=== PATIENT | female | born 1945 | race Caucasian/White ===

== ENCOUNTER 2020-01-29 15:59 | Emergency (ER) | payer MEDICARE, OTHER ==
[~2020-01-29] VITALS: Ht 165.1 cm; Wt 56.8 kg
[2020-01-29 16:39] VITALS: Ht 165.1 cm; Wt 56.8 kg
[2020-01-29] MEDS ORDERED: LOPRESSOR25 MG PO (16:40)
[2020-01-29] MEDS ORDERED: MAG 6464 MG PO (16:41)
[2020-01-29] MEDS ORDERED: PRAVACHOL20 MG PO (16:41)
[2020-01-29] MEDS ORDERED: ZOLOFT100 MG PO (16:41)
[2020-01-29] MEDS ORDERED: VITAMIN D5000 UNI1 PO (16:42)
[2020-01-29 17:30] LABS: BASOPHILS 0.1 % (0-2); EOSINOPHILS 0 % (0-7); HEMATOCRIT 44.3 % (36.0-48.0); IMMATURE GRANULOCYTES 0.4 % (0-5); LYMPHOCYTES 7.8 % (15-50); MCH 30.9 pg (26.0-34.0); MCHC 33.9 g/dL (31.0-37.0); MCV 91.2 fL (80.0-100.0); MEAN PLATELET VOLUME 8.5 fL (7.4-10.4); NEUTROPHILS 86.7 % (40-80); PLATELET COUNT 467 10x3/uL (130-400); RBC 4.86 10x6/uL (4.00-5.40); RDW 13.5 % (11.5-14.5); WBC 15.9 10x3/uL (4.8-10.8)
[2020-01-29 17:43] LABS: CALC OSMOLALITY 268 mosm/kg (275-300); CALCIUM 10.6 mg/dL (8.5-10.1); CHLORIDE - SERUM 91 mmol/L (98-107); CREATININE - SERUM 1.7 mg/dL (0.6-1.3); GLUCOSE 124 mg/dL (74-106); SODIUM 133 mmol/L (136-145); UREA NITROGEN 18 mg/dL (7-18); eGFR NON AFRICAN AMERICAN 31 mL/min (90-120)
[2020-01-29 17:56] LABS: ALKALINE PHOSPHATASE 126 U/L (30-120); ALT (SGPT) 23 U/L (10-68); AMYLASE - SERUM 72 U/L (25-115); APTT 28.1 SECONDS (22.8-39.4); BILIRUBIN - TOTAL 0.46 mg/dL (0.2-1.3); LIPASE 151 U/L (73-393); PROTEIN - SERUM 8.4 g/dL (6.4-8.2)
[2020-01-29 18:03] LABS: TROPONIN-I < 0.017 ng/mL (0.000-0.060)
[2020-01-29 18:24] LABS: INR 0.99 (0.85-1.17)
[2020-01-29 18:36] LABS: BILIRUBIN NEGATIVE (NEGATIVE); GLUCOSE 1000 mg/dL (NEGATIVE); KETONE MODERATE mg/dL (NEGATIVE); NITRITE NEGATIVE (NEGATIVE); SPECIFIC GRAVITY 1.015 (1.005-1.020); UROBILINOGEN NORMAL (NORMAL)
[2020-01-29] MEDS ORDERED: CARAFATE1 G PO (18:44)
[2020-01-29 20:00] VITALS: BP 149/91
== END 2020-01-29 20:00 | disposition home or self-care (01) ==
LOC: D.ER 15:59
PROVIDERS: Family Medicine
DX: K29.70 Gastritis, unspecified, without bleeding (principal); E86.0 Dehydration; E87.6 Hypokalemia; E87.1 Hypo-osmolality and hyponatremia; K21.9 Gastro-esophageal reflux disease without esophagitis; I10 Essential (primary) hypertension; R10.9 Unspecified abdominal pain; R11.2 Nausea with vomiting, unspecified; R19.7 Diarrhea, unspecified

== ENCOUNTER 2020-02-07 18:20 | Inpatient (IN) | payer MEDICARE, OTHER ==
[~2020-02-07] VITALS: Ht 165.1 cm; Wt 58.8 kg
[~2020-02-07 18:20] MED LIST: CARAFATE1 G PO; LOPRESSOR25 MG PO; MAG 6464 MG PO; PRAVACHOL20 MG PO; VITAMIN D5000 UNI1 PO; ZOLOFT100 MG PO
[2020-02-07 19:37] LABS: BASOPHILS 0.1 % (0-2); EOSINOPHILS 0.1 % (0-7); HEMATOCRIT 41.2 % (36.0-48.0); IMMATURE GRANULOCYTES 0.6 % (0-5); LYMPHOCYTES 7.4 % (15-50); MCH 30.7 pg (26.0-34.0); MCV 90.4 fL (80.0-100.0); MEAN PLATELET VOLUME 8.5 fL (7.4-10.4); MONOCYTES 8.3 % (2-11); NEUTROPHILS 83.5 % (40-80); PLATELET COUNT 432 10x3/uL (130-400); RBC 4.56 10x6/uL (4.00-5.40); RDW 13.3 % (11.5-14.5); WBC 15.6 10x3/uL (4.8-10.8)
[2020-02-07 19:46] LABS: ALBUMIN 3.2 g/dL (3.4-5.0); BILIRUBIN - TOTAL 0.41 mg/dL (0.2-1.3); CARBON DIOXIDE 28.7 mmol/L (21.0-32.0); CREATININE - SERUM 2.2 mg/dL (0.6-1.3); PROTEIN - SERUM 7.2 g/dL (6.4-8.2)
[2020-02-07 19:48] LABS: PROTIME 13.6 SECONDS (11.6-15.0)
[2020-02-07 19:49] LABS: INR 1.05 (0.85-1.17)
[2020-02-07 19:51] LABS: POTASSIUM - SERUM 2.7 mmol/L (3.5-5.1)
--- NOTE | 2020-02-08 00:15 | NUR ---
PATIENT TO THE FLOOR, STATES NO N/V AT THIS TIME. STATES SHE FEELS PRETTY GOOD RIGHT NOW. CALL LIGHT WITHIN REACH AND BED IN LOWEST POSITION. NO DISTRESS NOTED.
[2020-02-08 04:00] VITALS: BP 155/92
[2020-02-08 09:26] VITALS: BP 138/87
[2020-02-08 13:33] VITALS: BMI 21.3
[2020-02-08 15:29] LABS: ANION GAP 7.6 mmol/L (8-16); CALCIUM 9.1 mg/dL (8.5-10.1); CARBON DIOXIDE 28.7 mmol/L (21.0-32.0); MAGNESIUM - SERUM 1.8 mg/dL (1.8-2.4)
[2020-02-08 15:34] LABS: CREATININE - SERUM 1.4 mg/dL (0.6-1.3); POTASSIUM - SERUM 3.3 mmol/L (3.5-5.1)
[2020-02-08 15:52] VITALS: BP 114/72
[2020-02-08 15:59] LABS: BASOPHILS 0.2 % (0-2); EOSINOPHILS 1.3 % (0-7); IMMATURE GRANULOCYTES 0.2 % (0-5); LYMPHOCYTES 16.4 % (15-50); MCH 30.2 pg (26.0-34.0); MCHC 33.3 g/dL (31.0-37.0); MCV 90.7 fL (80.0-100.0); MEAN PLATELET VOLUME 8.6 fL (7.4-10.4); MONOCYTES 10.9 % (2-11); PLATELET COUNT 363 10x3/uL (130-400); RDW 13.1 % (11.5-14.5)
[2020-02-08 16:00] LABS: HEMATOCRIT 32.1 % (36.0-48.0); HEMOGLOBIN 10.7 g/dL (12-16); RBC 3.54 10x6/uL (4.00-5.40)
[2020-02-08 16:21] VITALS: Ht 165.1 cm; Wt 58.8 kg
--- NOTE | 2020-02-08 17:06 | NUR ---
TELEMETRY SR. VISITOR AT . CALL LIGHT IN REACH.
--- NOTE | 2020-02-08 18:43 | NUR ---
I have reviewed this patient and I concur with the Shift Assessment completed by the Licensed Practical Nurse today this shift.
[2020-02-08 19:04] LABS: BILIRUBIN NEGATIVE (NEGATIVE); GLUCOSE NEGATIVE (NEGATIVE); KETONE NEGATIVE (NEGATIVE); NITRITE NEGATIVE (NEGATIVE); UROBILINOGEN NORMAL (NORMAL)
[2020-02-08 19:15] LABS: POTASSIUM - URINE 10.8 MMOL/L (12.0-62.0)
--- NOTE | 2020-02-08 19:54 | NUR ---
PT LYING IN BED AWAKE ALERT AND ORIENTED x4. NO SIGNS OR SYMPTOMS OF DISTRESS NOTED. RESPIRATIONS EVEN AND UNLABORED. PT HAS NO COMPLAINTS. DENIES PT AT THIS TIME. PT STATES 0 PAIN LEVEL. CALL LIGHT AND OTHER PERSONAL ITEMS WITH IN REACH. BED IS IN LOWEST POSITION. AND SIDERAILS x2. WILL CONTINUE TO MONITOR
[2020-02-08 20:00] VITALS: BP 120/67
[2020-02-08 21:06] LABS: CALCIUM 9.1 mg/dL (8.5-10.1); CARBON DIOXIDE 29.1 mmol/L (21.0-32.0); CREATININE - SERUM 1.2 mg/dL (0.6-1.3); POTASSIUM - SERUM 3.1 mmol/L (3.5-5.1)
[2020-02-09] VITALS: BP 132/90
--- NOTE | 2020-02-09 03:20 | NUR ---
PT LYING IN BED RESTING WITH EYES CLOSED. NO SIGNS OF DISTRESS NOTED. EASILY AWAKEN WITH VOICE STIMULATION. ICE WATER PROVIDED PER. PT REQUEST. AU CARE DONE. PT HAS NO COMPLAINTS AT THIS TIME. CALL LIGHT AND OTHER PERSONAL ITEMS WITH IN REACH. WILL CONTINUE TO MONITOR
--- NOTE | 2020-02-09 03:48 | NUR ---
PT RESTING IN BED QUIETLY WITH EYES CLOSED. EASILY AWAKEN WITH VOICE STIMULATION. NO SIGNS OF DISTRESS NOTED AT THIS TIME. PT HAS NO COMPLAINTS. PT ENCOUARGED TO CALL FOR HELP WHEN NEEDED. PT HAS BEEN NPO SINCE MIDNIGHT. PT IS AWARE. CALL LIGHT AND OTHER PERSONAL ITEMS WITH INREACH. WILL CONTINUE TO MONITOR
[2020-02-09 04:00] VITALS: BP 124/88
[2020-02-09 06:37] LABS: BASOPHILS 0.3 % (0-2); EOSINOPHILS 2.6 % (0-7); HEMATOCRIT 36.6 % (36.0-48.0); HEMOGLOBIN 11.8 g/dL (12-16); IMMATURE GRANULOCYTES 0.3 % (0-5); LYMPHOCYTES 29.8 % (15-50); MCH 29.6 pg (26.0-34.0); MCHC 32.2 g/dL (31.0-37.0); MEAN PLATELET VOLUME 8.3 fL (7.4-10.4); MONOCYTES 10.5 % (2-11); NEUTROPHILS 56.5 % (40-80); PLATELET COUNT 404 10x3/uL (130-400); RBC 3.98 10x6/uL (4.00-5.40); RDW 13.1 % (11.5-14.5)
[2020-02-09 06:40] LABS: WBC 6.6 10x3/uL (4.8-10.8)
[2020-02-09 06:51] LABS: ANION GAP 7.3 mmol/L (8-16); CALCIUM 9.7 mg/dL (8.5-10.1); CARBON DIOXIDE 30.1 mmol/L (21.0-32.0); CREATININE - SERUM 1.2 mg/dL (0.6-1.3); MAGNESIUM - SERUM 1.9 mg/dL (1.8-2.4); POTASSIUM - SERUM 3.4 mmol/L (3.5-5.1)
--- NOTE | 2020-02-09 07:30 | NUR ---
PT RECEIVED AWAKE AND ALERT. NPO FOR EGD. MED GIVEN WITH SIP. FAMILY IN ROOM.
[2020-02-09 10:01] VITALS: BP 144/89
[2020-02-09 15:09] VITALS: BP 146/98
--- NOTE | 2020-02-09 15:17 | NUR ---
PT BACK TO ROOM FROM RECOVERY POST EGD. AWAKE AND ALERT ASKING FOR WATER. ABLE TO SWALLOW WITHOUT DIFFICULTY OR COUGH. DR BAEZ IN ROOM NOW.
[2020-02-09 20:50] VITALS: BP 143/85
[2020-02-10 00:49] VITALS: BP 142/93
--- NOTE | 2020-02-10 01:57 | NUR ---
PT RESTING IN BED QUIETLY WITH EYES CLOSED. PT EASILY AWAKEN WITH VOICE STIMULATION. PT ALERT AND ORIENTED X4. PT HAS NO COMPLAINTS AT THIS TIME.CALL LIGHT NAD OTHER PERSONAL ITEMS WITH IN REACH. BED IS IN ITS LOWEST POSITION. SIDERAILS x2. PT ENCOURAGED TO CALL FOR HELP WHEN GETTING IN AND OUT OF BED AND NEEDED. WILL CONTINUE TO MONITOR
[2020-02-10 05:18] VITALS: BP 160/97
--- NOTE | 2020-02-10 06:31 | NUR ---
I have reviewed this patient and I concur with the Shift Assessment completed by the Licensed Practical Nurse today this shift.
[2020-02-10 08:12] LABS: BASOPHILS 0.3 % (0-2); HEMATOCRIT 34.8 % (36.0-48.0); HEMOGLOBIN 11.3 g/dL (12-16); IMMATURE GRANULOCYTES 0.3 % (0-5); LYMPHOCYTES 23.4 % (15-50); MCH 30.3 pg (26.0-34.0); MCHC 32.5 g/dL (31.0-37.0); MCV 93.3 fL (80.0-100.0); MEAN PLATELET VOLUME 8.7 fL (7.4-10.4); MONOCYTES 8.4 % (2-11); NEUTROPHILS 64.6 % (40-80); PLATELET COUNT 412 10x3/uL (130-400); RBC 3.73 10x6/uL (4.00-5.40); RDW 13.3 % (11.5-14.5); WBC 6.3 10x3/uL (4.8-10.8)
[2020-02-10 08:15] VITALS: BP 152/94
--- NOTE | 2020-02-10 08:15 | NUR ---
PT RECEIVED AWAKE AND ALERT. STATES SLEPT REALLY GOOD. BP UP SOME, 152/94. BP MED GIVEN, WILL CHECK AGAIN SHORTLY.
[2020-02-10 08:47] LABS: ANION GAP 8.5 mmol/L (8-16); CALCIUM 9.5 mg/dL (8.5-10.1); CARBON DIOXIDE 26.3 mmol/L (21.0-32.0); CREATININE - SERUM 1.1 mg/dL (0.6-1.3); MAGNESIUM - SERUM 1.9 mg/dL (1.8-2.4); POTASSIUM - SERUM 3.8 mmol/L (3.5-5.1)
[2020-02-10 11:23] VITALS: BP 163/92
[2020-02-10 15:44] VITALS: BP 170/100
[2020-02-10] MEDS ORDERED: PROTONIX40 MG PO (15:56)
[2020-02-10] MEDS ORDERED: CARAFATE1 G PO (15:56)
--- NOTE | 2020-02-10 17:22 | NUR ---
PT'S DC INSTRUCTIONS REVIEWED. IV OUT. TELEMETRY REMOVED. WHEELCHAIR TO ER FOR DISCHARGE.
--- NOTE | 2020-02-11 22:03 | MORECARE ---
CASE MANAGEMENT DISCHARGE SUMMARY PATIENT: NAHEED CHRISTIANSON UNIT: [id number] ADM DATE: 02/08/20 AGE: 74 : 45 SEX: F ROOM/BED: D.2071 AUTHOR: SUSAN,DOC PHYSICIAN: REFERRING PHYSICIAN: CHONG MESA MD DATE OF SERVICE: 02/11/20 Discharge Plan Patient Name: NAHEED CHRISTIANSON Facility: [facility]:[place] : 1945 Planned Disposition: Home Anticipated Discharge Date: Discharge Date: 02/10/2020 Expected LOS: Initial Reviewer: [email or web address] Initial Review Date: 02/07/2020 Generated: 02/11/20 11:02 pm Comments DCP- Discharge Planning Updated by [email or web address]: Pam Wilson on 02/11/20 8:[address] LATE ENTRY 02/10/20 Patient Name: NAHEED CHRISTIANSON Admission Status: Elective Accout number: [id number] Admission Date: 02-08-2020 : 1945 Admission Diagnosis:ACUTE KIDNEY FAILURE, UNSPECIFIED Attending: ANGELIA Current LOS: 2 Anticipated DC Date: Planned Disposition: Home Primary Insurance: MEDICARE A & B Discharge Planning Comments: CM met with patient to complete initial dc planning assessment. CM educated patient on the CM role and verbal consent given by patient to complete assessment. Patient lives at home alone. Patient is independent. At discharge patient plans to return home and feels this is a safe discharge. CM discussed availability of home health, rehab services, and medical equipment. Patient will have family to transport home. Patient denied known discharge needs at this time. D/C IMM signed 02/10/20 @ 1610 CM will continue to follow and will assist as needed with dc plans/needs. Candy Packer: Pam Wilson DCPIA - Discharge Planning Initial Assessment Updated by [id number]: Pam Wilson on 02/11/20 9:58 pm * Is the patient Alert and Oriented? Yes * How many steps to enter\exit or inside your home? * PCP NED BURROUGHS * Pharmacy [facility] * Preadmission Environment Home Alone * ADLs Independent * Equipment None * List name and contact numbers for known caregivers / representatives who currently or will assist patient after discharge: TRISTAN SORENSEN - [phone] * Verbal permission to speak to the caregivers and representatives has been obtained from the patient. No * Community resources currently utilized None * Additional services required to return to the preadmission environment? No * Can the patient safely return to the preadmission environment? Yes * Has this patient been hospitalized within the prior 30 days at any hospital? No Coverage Notice Reviewer: [email or web address] Barbara Marr Notice Issued Date-Time: 02/08/2020 13:10 Notice Type: Medicare Outpatient Observation Notice Notice Delivered To: Patient Relationship to Patient: Store Administrator Name: Delivery Method: HAND - Hand Delivered Ella Days: Prior Verbal Notification: Recipient Understood Notice: Yes Recipient Signature: Yes Med Rec Note Co-signed by Attending: Coverage Notice Comment: PONCE SERVED, EXPLAINED, AND SIGNED BY PATIENT. THE ORIGINAL WAS PROVIDED TO THE PATIENT AND COPY PLACED ON CHART. Reviewer: [email or web address] Barbara Wilson Notice Issued Date-Time: 02/10/2020 16:10 Notice Type: IM Discharge Notice Notice Delivered To: Patient Relationship to Patient: Self Store Administrator Name: Delivery Method: HAND - Hand Delivered Ella Days: Prior Verbal Notification: Recipient Understood Notice: Yes Recipient Signature: Yes Med Rec Note Co-signed by Attending: Coverage Notice Comment: Patient Name: NAHEED CHRISTIANSON Page [phone] at 2203 All edits/amendments must be made on the electronic document DICTATION DATE: 02/11/202202 FINANCIAL SYSTEMS MANAGER: NELLY 02/11/202202 RPT#: [id number] DC DATE:02/10/20 STATUS: DIS IN [facility] [address] [place] [address] END OF REPORT
== END 2020-02-10 17:23 | disposition home or self-care (01) | DRG 683 ==
LOC: D.ER 18:20 → D.M2 20:41 → OBSVTIME 22:05 → D.M2 02-08 17:14
PROVIDERS: Emergency Medicine; Family Medicine; Internal Medicine; Internal Medicine Gastroenterology; ADMIT Family Medicine; ATTEND Family Medicine
PROC: 0DB68ZX Excision of Stomach, Via Natural or Artificial Opening Endoscopic, Diagnostic (ICD-10-PCS; principal; 2020-02-09 14:00)
DX: N17.9 Acute kidney failure, unspecified (principal); E87.1 Hypo-osmolality and hyponatremia; K56.7 Ileus, unspecified; E87.6 Hypokalemia; R16.0 Hepatomegaly, not elsewhere classified; K21.9 Gastro-esophageal reflux disease without esophagitis; R91.8 Other nonspecific abnormal finding of lung field; K52.9 Noninfective gastroenteritis and colitis, unspecified; E86.0 Dehydration; K29.80 Duodenitis without bleeding; Q40.2 Other specified congenital malformations of stomach

== ENCOUNTER 2020-02-23 17:39 | Inpatient (IN) | payer MEDICARE, OTHER ==
[~2020-02-23] VITALS: Ht 167.6 cm; Wt 59.6 kg
--- NOTE | 2020-02-23 10:10 | NUR ---
DURING ADMISSION HISTORY, PATIENT STATED SHE WANTED TO BE DNR. PAGED OLGA KAUR AT 220. OLGA IMMEDIATELY CALLED BACK AND GAVE OKAY WITH A WITNESS. AT 2209, DR. WILKINS WALKED INTO PATIENT ROOM AND TALK WITH PATIENT ABOUT WANTING TO BE DNR. AFTER TALKING TO DR. WILKINS, PATIENT IS TO REMAIN FULL CODE.
[~2020-02-23 17:39] MED LIST changes: +PROTONIX40 MG PO
[2020-02-23 18:26] LABS: BASOPHILS 0.1 % (0-2); EOSINOPHILS 0.1 % (0-7); HEMATOCRIT 31.4 % (36.0-48.0); HEMOGLOBIN 10.5 g/dL (12-16); IMMATURE GRANULOCYTES 0.3 % (0-5); LYMPHOCYTES 5.6 % (15-50); MCH 29.6 pg (26.0-34.0); MCHC 33.4 g/dL (31.0-37.0); MCV 88.5 fL (80.0-100.0); MEAN PLATELET VOLUME 7.8 fL (7.4-10.4); MONOCYTES 5.8 % (2-11); NEUTROPHILS 88.1 % (40-80); RBC 3.55 10x6/uL (4.00-5.40); RDW 12.9 % (11.5-14.5); WBC 15.1 10x3/uL (4.8-10.8)
[2020-02-23 18:27] LABS: PLATELET COUNT 538 10x3/uL (130-400)
[2020-02-23 18:30] VITALS: BP 126/73
[2020-02-23 18:38] LABS: INR 1.07 (0.85-1.17); PROTIME 13.9 SECONDS (11.6-15.0)
[2020-02-23 18:44] LABS: ALBUMIN 2.9 g/dL (3.4-5.0); ANION GAP 5.4 mmol/L (8-16); BILIRUBIN - TOTAL 0.4 mg/dL (0.2-1.3); CALCIUM 9.5 mg/dL (8.5-10.1); CARBON DIOXIDE 33.3 mmol/L (21.0-32.0); CREATININE - SERUM 1.2 mg/dL (0.6-1.3); PROTEIN - SERUM 6.3 g/dL (6.4-8.2)
[2020-02-23 18:45] LABS: APTT 32.4 SECONDS (22.8-39.4)
[2020-02-23 18:53] LABS: POTASSIUM - SERUM 2.7 mmol/L (3.5-5.1)
--- NOTE | 2020-02-23 19:10 | NUR ---
BS REPORT TO TRAVIS FOSS
--- NOTE | 2020-02-23 21:18 | NUR ---
PATIENT ARRIVED VIA STRECTHER FROM ER. A/O X 4. BREATHING ROOM AIR. LEFT AND RIGHT PIV TO FOREARMS. PROTONIX 10ML/HR VIA LEFT FOREARM, ZOFRAN IV TO RIGHT FOREARM. DR. WILKINS IN ROOM WITH PATIENT ON ARRIVAL.
--- NOTE | 2020-02-23 21:35 | NUR ---
DR. BOJORQUEZ IN TO SEE PATIENT.
[2020-02-23 21:44] VITALS: BP 123/78; BMI 19.7
[2020-02-23 22:00] VITALS: BP 149/91
--- NOTE | 2020-02-23 22:10 | NUR ---
DURING ADMISSION HISTORY, PATIENT STATED SHE WANTED TO BE DNR. PAGED OLGA KAUR AT 2204. OLGA IMMEDIATELY CALLED BACK AND GAVE OKAY WITH TORITO MERCADO RN WITNESS. AT 2210, DR. WILKINS WALKED INTO PATIENT ROOM AND TALK WITH PATIENT ABOUT WANTING TO BE DNR. AFTER TALKING TO DR. WILKINS, PATIENT IS TO REMAIN FULL CODE.
[2020-02-23 23:00] VITALS: BP 115/78
--- NOTE | 2020-02-23 23:14 | NUR ---
PATIENT'S NEIGHBOR, MS. ELLER CALLED, PASSCODE WITH GIVEN BY HER. UPDATE GIVEN.
[2020-02-24] VITALS (24 sets, daily range): BP systolic 105–160; BP diastolic 64–99; Ht 167.6 cm; Wt 59.6 kg
--- NOTE | 2020-02-24 01:00 | NUR ---
EYES CLOSED, EASILY WAKES. VSS. DENIES ANY NEEDS
[2020-02-24 04:05] LABS: BASOPHILS 0.3 % (0-2); EOSINOPHILS 0.5 % (0-7); HEMATOCRIT 26.6 % (36.0-48.0); HEMOGLOBIN 8.8 g/dL (12-16); IMMATURE GRANULOCYTES 0.2 % (0-5); LYMPHOCYTES 12.6 % (15-50); MCH 29.5 pg (26.0-34.0); MCHC 33.1 g/dL (31.0-37.0); MCV 89.3 fL (80.0-100.0); MEAN PLATELET VOLUME 7.7 fL (7.4-10.4); MONOCYTES 8.1 % (2-11); NEUTROPHILS 78.3 % (40-80); RBC 2.98 10x6/uL (4.00-5.40)
[2020-02-24 04:07] LABS: PLATELET COUNT 423 10x3/uL (130-400)
[2020-02-24 04:17] LABS: ALBUMIN 2.4 g/dL (3.4-5.0); ANION GAP 4.9 mmol/L (8-16); BILIRUBIN - TOTAL 0.28 mg/dL (0.2-1.3); CALCIUM 8.8 mg/dL (8.5-10.1); CREATININE - SERUM 1.2 mg/dL (0.6-1.3); MAGNESIUM - SERUM 1.9 mg/dL (1.8-2.4); PROTEIN - SERUM 5.1 g/dL (6.4-8.2)
[2020-02-24 04:18] LABS: POTASSIUM - SERUM 2.9 mmol/L (3.5-5.1)
--- NOTE | 2020-02-24 07:20 | NUR ---
[id number] COMPLETED. NO CHANGES 0500- CONSENTS SIGNED. 0530- 1 UNIT OF PRBC STARTED. 0600-CHG BATH GIVEN. 0615-PIV TO LEFT FOREARM INFILTRATED. RESTARTED PIV 20G TO LEFT FOREARM X 2 ATTEMPTS.
[2020-02-24 08:03] LABS: BILIRUBIN NEGATIVE (NEGATIVE); GLUCOSE NEGATIVE (NEGATIVE); KETONE NEGATIVE (NEGATIVE); NITRITE NEGATIVE (NEGATIVE); SPECIFIC GRAVITY 1.005 (1.005-1.020); UROBILINOGEN NORMAL (NORMAL)
--- NOTE | 2020-02-24 08:15 | NUR ---
1UPRBC COMPLETE. VSS. PT NPO FOR OR TODAY. PT DENIES PAIN. NO N&V.
--- NOTE | 2020-02-24 10:45 | NUR ---
ANSWERED PTS CALL LIGHT REQUESTING TO TRY USE VEDPAN FOR URINE
--- NOTE | 2020-02-24 12:48 | NUR ---
1230-PT TO OR. CONCENTS ON CHART. PREOP MEDS GIVEN.PTS FRIEND DIRECTED TO [place] BY OR STAFF.
--- NOTE | 2020-02-24 15:07 | NUR ---
REC'D PT FROM RR. VSS, PT C/O INCISIONAL PAIN TO ABD. MS GIVEN ORDERED.
[2020-02-24 15:56] LABS: HEMATOCRIT 30.2 % (36.0-48.0); HEMOGLOBIN 9.9 g/dL (12-16)
[2020-02-24 16:14] LABS: % SATURATION 9 % (15-55); IRON 19 ug/dl (35-150); TOTAL IRON BIND CAPACITY 200 ug/dl (260-445); UNSAT IRON BIND CAPACITY 181 ug/dl (150-375)
--- NOTE | 2020-02-24 19:00 | NUR ---
REPORT RECEIVED DAY NURSE MEDICATED WITH MORPHINE FOR PAIN AT THIS TIME. PT ALERT AND ORIENTED X 4. FOLLOWS COMMANDS. MID LINE ABD INCISION NOTED INTACT OLD DRAINAGE MARKED FOR MEASURE NO ACTIVE BLEEDING NOTED AT THIS TIME WILL CONTINUE TO MONITOR. PT ON 3.5LPM O2 PER NC WITH O2 SAT 96%. RESP EVEN NONLABORED BUT SHALLOW ENCOURAGED PT DEEP BREATHS MAY BE PAINFUL BUT WILL HELP IN LONG RUN AND NECESSARY FOR HEALING WITHOUT COMPLICATIONS. CM READING SR-ST WITHOUT ECTOPY ALARMS ON AND AUDIBLE. BED LOW POSITION SIDE RAILS UP CL IN REACH WILL CONTINUE TO MONITOR.
--- NOTE | 2020-02-24 21:15 | NUR ---
ANSWERED PTS CALL LIGHT SHE IS REQUESTING PAIN MED INFORMED TOO EARLY ITS SCHEDULED Q4 HOURS. SHE HAD JUST HAD BLOOD LAB DRAWN AND STATES IT HURT. INFORMED UNABLE TO TAKE ALL PAIN AWAY IN ICU BUT THE MORE SHE MOVES AND TAKES DEEP BREATHS THE BETTER OFF SHE IS. SHE VERBALIZES GOOD UNDERSTANDING. ASSISTED ON BED MOSS PT FEELS LIKE SHE CAN URINATE. PT DID TURN TO SIDE WITH MINIMAL ASSIST.
--- NOTE | 2020-02-24 21:30 | NUR ---
HGB AND HCT LAB RESULTS BACK NO TRANSFER AT THIS TIME. PER ORDERS TRANSFER 1UNIT FOR HCT<28 AND TRANSFUSE 2 UNITS PRBC IF HCT <26. HGB 9.7 HCT 29.9 NO TRANSFUSE CONTINUE H&H SERIAL DRAWS
[2020-02-24 21:36] LABS: HEMATOCRIT 29.9 % (36.0-48.0); HEMOGLOBIN 9.7 g/dL (12-16)
--- NOTE | 2020-02-24 23:15 | NUR ---
PT C/O ABD PAIN BEING FULL NEEDING TO URINATE BUT UNABLE 16 AU PLACED WITH IMMEDIATE RETURN OF 450 CC CLEAR YELLOW URINE PT STATES SHE GAINED INSTANT RELIEF
[2020-02-25] VITALS (24 sets, daily range): BP systolic 125–165; BP diastolic 82–101
--- NOTE | 2020-02-25 01:00 | NUR ---
PT RESTING QUIETLY VSS NO DISTRESS NOTED CL IN REACH CPOC
--- NOTE | 2020-02-25 03:29 | NUR ---
BUYERS' AGENT HERE TO DRAW AM LABS PT WAS RESTING WOKE UP REQUESTING PAIN MED GIVEN PER EMAR WILL CONTINUE TO MONITOR
[2020-02-25 03:48] LABS: BASOPHILS 0.3 % (0-2); EOSINOPHILS 0.4 % (0-7); HEMATOCRIT 31.5 % (36.0-48.0); HEMOGLOBIN 10.3 g/dL (12-16); IMMATURE GRANULOCYTES 0.3 % (0-5); LYMPHOCYTES 6.4 % (15-50); MCH 29.9 pg (26.0-34.0); MCHC 32.7 g/dL (31.0-37.0); MEAN PLATELET VOLUME 8.1 fL (7.4-10.4); MONOCYTES 4.8 % (2-11); NEUTROPHILS 87.8 % (40-80); PLATELET COUNT 378 10x3/uL (130-400); RBC 3.44 10x6/uL (4.00-5.40); RDW 13.6 % (11.5-14.5); WBC 10.7 10x3/uL (4.8-10.8)
[2020-02-25 03:58] LABS: MCV 91.6 fL (80.0-100.0)
[2020-02-25 04:09] LABS: ALBUMIN 2.2 g/dL (3.4-5.0); ANION GAP 7.1 mmol/L (8-16); BILIRUBIN - TOTAL 0.28 mg/dL (0.2-1.3); CALCIUM 8.9 mg/dL (8.5-10.1); CARBON DIOXIDE 26.8 mmol/L (21.0-32.0); MAGNESIUM - SERUM 1.9 mg/dL (1.8-2.4); POTASSIUM - SERUM 3.9 mmol/L (3.5-5.1); PROTEIN - SERUM 5.2 g/dL (6.4-8.2)
--- NOTE | 2020-02-25 06:00 | NUR ---
INTO CHECK ON PT SHE STATES SHE FEELS BETTER "IM MORE SORE THAN THE PAIN LAST NIGHT"
--- NOTE | 2020-02-25 10:39 | NUR ---
OOB TO CHAIR, PT JANINE WELL.
[2020-02-25 13:44] LABS: HEMATOCRIT 32.9 % (36.0-48.0); HEMOGLOBIN 10.7 g/dL (12-16)
--- NOTE | 2020-02-25 14:57 | NUR ---
DR WILKINS HERE ON ROUNDS. MAY HAVE SIPS OF WATER, ICE AND POPCYCLES.
--- NOTE | 2020-02-25 15:35 | NUR ---
PT AMB 50 FEET IN ICU.
--- NOTE | 2020-02-25 18:01 | NUR ---
DR WILKINS HERE ON ROUNDS. SPOKE TO PT AND PTS DAUGHTER.
--- NOTE | 2020-02-25 19:00 | NUR ---
REPORT RECEIVED INITIAL ASSESMENT COMPLETE. PT ALERT AND ORIENTED AND WHEN ASKED HOW SHE WAS FEELING STATED "MUCH BETTER THAN YESTERDAY. RESP EVEN AND NONLABORED O2 SAT 97%. CHEST CLEAR REMINDED PT TO TCDB AND USE IS TO IMPROVE OUTCOMES SHE VERBALIZES GOOD UNDERSTANDING. ABD INCISION CDI PT STATES SHE HAS PASSED GAS BS STILL FAINT TO HYPO. AU D/C TODAY. CM READNG SR WITHOUT ECTOPY AND ALARMS ON AND AUDIBLE. SKIN W/D BED LOW POSITION SIDE RAILS UP TIMES 3 CL IN REACH PT DENIES NEEDS AT THIS TIME. HAS JUST BEEN GIVEN PAIN MED FROM PREVIOUS SHIFT. PROTONIX AND ZOFRAN GTT CONTINUE PER ORDERS. WILL CONTINUE TO MONITOR
[2020-02-25 21:26] LABS: HEMOGLOBIN 9.7 g/dL (12-16)
--- NOTE | 2020-02-25 23:00 | NUR ---
REASSESSMENT COMPLETE NO CHANGES CPOC CL IN REACH
--- NOTE | 2020-02-25 23:30 | NUR ---
ANSWERED PTS CALL LIGHT SHE IS REQUESTING PAIN MED FOR INCISIONAL DISCOMFORT MEDICATED SEE EMAR PRN MORPHINE. CPOC
[2020-02-26] VITALS (20 sets, daily range): BP systolic 131–168; BP diastolic 58–104
--- NOTE | 2020-02-26 03:30 | NUR ---
GROUND SUPPORT AGENT HERE TO DRAW AM LABS
[2020-02-26 03:57] LABS: BASOPHILS 0.2 % (0-2); EOSINOPHILS 1.8 % (0-7); HEMATOCRIT 30.1 % (36.0-48.0); HEMOGLOBIN 9.7 g/dL (12-16); IMMATURE GRANULOCYTES 0.2 % (0-5); LYMPHOCYTES 10.5 % (15-50); MCH 29.1 pg (26.0-34.0); MCHC 32.2 g/dL (31.0-37.0); MCV 90.4 fL (80.0-100.0); MONOCYTES 10.2 % (2-11); NEUTROPHILS 77.1 % (40-80); PLATELET COUNT 380 10x3/uL (130-400); RBC 3.33 10x6/uL (4.00-5.40); RDW 13.6 % (11.5-14.5); WBC 8.4 10x3/uL (4.8-10.8)
[2020-02-26 04:19] LABS: ALBUMIN 2.2 g/dL (3.4-5.0); BILIRUBIN - TOTAL 0.38 mg/dL (0.2-1.3); CALCIUM 9.1 mg/dL (8.5-10.1); CARBON DIOXIDE 26.6 mmol/L (21.0-32.0); MAGNESIUM - SERUM 1.8 mg/dL (1.8-2.4); POTASSIUM - SERUM 3.6 mmol/L (3.5-5.1); PROTEIN - SERUM 5.3 g/dL (6.4-8.2)
--- NOTE | 2020-02-26 05:30 | NUR ---
CHECKING ON PATIENT DENIES PAIN OR NEEDS AT THIS TIME CPOC VSS
--- NOTE | 2020-02-26 11:05 | NUR ---
Nutrition follow-up: Pt remains NPO with sips of H2O ProcalAmine PPN @ 30 ml/hr Labs reviewed WT: 131# RDN following.
--- NOTE | 2020-02-26 11:20 | NUR ---
0700 BEDSIDE REPORT RECEIVED FROM [place] ROBLES ASSISTED WITH MINIMAL ASSIST TO BEDSIDE COMMODE VOIDED WITHOUT DIFFICULTY MINIMAL ASSIST TO RETURN TO BED C/O ABDOMINAL PAIN PRN MORPHINE GIVEN TO LEFT FOREARM IV AND FLUSHED
--- NOTE | 2020-02-26 11:22 | NUR ---
0900 PROVIDED ICE CHIPS AND POPSICLE REQUESTED BY PATIENT ASSISTED WITH REPOSITIONING PATIENT UP IN BED
--- NOTE | 2020-02-26 11:30 | NUR ---
1100 REQUESTED MORPHINE IV INFORMED PT AND HER DAUGHTER THAT WE HAD TO WAIT 45 MORE MINUTES IT WAS A LITTLE TOO EARLY FOR PAIN MED. VERBALIZED UNDERSTANDING. DR ROLAND BEDSIDE AND SURGEON BOTH ROUNDED ON PATIENT AND PROVIDED UPDATES
--- NOTE | 2020-02-26 13:15 | NUR ---
FAMILY AT BEDSIDE, UPDATE GIVEN
--- NOTE | 2020-02-26 15:00 | NUR ---
NO NEEDS NOTED AT THIS TIME, VSS, CALL LIGHT IN REACH
--- NOTE | 2020-02-26 17:00 | NUR ---
PT RESTING AT THIS TIME, WILL CON'T TO MONITOR
--- NOTE | 2020-02-26 23:00 | NUR ---
PT RESTING IN BED, NO ACUTE DISTRESS NOTED.
[2020-02-27] VITALS (10 sets, daily range): BP systolic 140–166; BP diastolic 91–120
--- NOTE | 2020-02-27 01:00 | NUR ---
PT RESTING QUIETLY IN BED, NO ACUTE DISTRESS NOTED.
--- NOTE | 2020-02-27 03:00 | NUR ---
PT RESTING IN BED AT THIS TIME.
[2020-02-27 04:07] LABS: BASOPHILS 0.4 % (0-2); EOSINOPHILS 1.8 % (0-7); HEMATOCRIT 30.8 % (36.0-48.0); HEMOGLOBIN 10.1 g/dL (12-16); IMMATURE GRANULOCYTES 0.1 % (0-5); MCH 29.4 pg (26.0-34.0); MCHC 32.8 g/dL (31.0-37.0); MCV 89.8 fL (80.0-100.0); MEAN PLATELET VOLUME 8.1 fL (7.4-10.4); MONOCYTES 9.3 % (2-11); NEUTROPHILS 76.4 % (40-80); PLATELET COUNT 364 10x3/uL (130-400); RBC 3.43 10x6/uL (4.00-5.40); RDW 13.4 % (11.5-14.5); WBC 7.7 10x3/uL (4.8-10.8)
[2020-02-27 04:27] LABS: ALBUMIN 2.2 g/dL (3.4-5.0); ANION GAP 7.2 mmol/L (8-16); BILIRUBIN - TOTAL 0.3 mg/dL (0.2-1.3); CALCIUM 9.6 mg/dL (8.5-10.1); CARBON DIOXIDE 28.7 mmol/L (21.0-32.0); CREATININE - SERUM 0.9 mg/dL (0.6-1.3); MAGNESIUM - SERUM 1.8 mg/dL (1.8-2.4); POTASSIUM - SERUM 3.9 mmol/L (3.5-5.1); PROTEIN - SERUM 5.6 g/dL (6.4-8.2)
--- NOTE | 2020-02-27 05:00 | NUR ---
PT SITTING UP IN BED, NO COMPLAINTS AT THIS TIME.
--- NOTE | 2020-02-27 10:17 | NUR ---
Received AAOx3. Bed in low position. Call light in reach. Up to Bedside commode. Voids clear yellow. Denies any pain or SOB. SR up x 2.
--- NOTE | 2020-02-27 10:20 | NUR ---
Dr. Pinzon at bedside. Given update regarding B/P. Order received. Will administer. See EMAR.
--- NOTE | 2020-02-27 20:00 | NUR ---
DR WILKINS NOTIFIED ABOUT HGB AND PT STATES THAT HER BELLY IS GETTING BIGGER. PT IS POSITIONED FOR COMFORT.
--- NOTE | 2020-02-27 21:01 | MORECARE ---
CASE MANAGEMENT DISCHARGE SUMMARY PATIENT: NAHEED CHRISTIANSON UNIT: [id number] ADM DATE: 02/23/20 AGE: 74 : 45 SEX: F ROOM/BED: D.2308 AUTHOR: DAVID DAVIS PHYSICIAN: REFERRING PHYSICIAN: AMERICA BOJORQUEZ MD DATE OF SERVICE: 02/27/20 Discharge Plan Patient Name: NAHEED CHRISTIANSON [facility] [facility] 1945 Planned Disposition: Home with Home Health Anticipated Discharge Date: Discharge Date: Expected LOS: Initial Reviewer: [email or web address] Initial Review Date: 02/23/2020 Generated: 02/27/20 10:01 pm DCPIA - Discharge Planning Initial Assessment Updated by [email or web address]: Pam Wilson on 02/27/20 8:59 pm * Is the patient Alert and Oriented? Yes * How many steps to enter\exit or inside your home? * PCP NED MAURER APN * Pharmacy [facility] * Preadmission Environment Home Alone * ADLs Independent * Equipment None * List name and contact numbers for known caregivers / representatives who currently or will assist patient after discharge: LORI MARTIN [facility] - [phone] * Verbal permission to speak to the caregivers and representatives has been obtained from the patient. Yes * Community resources currently utilized None * Additional services required to return to the preadmission environment? No * Can the patient safely return to the preadmission environment? Yes * Has this patient been hospitalized within the prior 30 days at any hospital? Yes Patient Name: NAHEED CHRISTIANSON Page [phone] at 2101 All edits/amendments must be made on the electronic document DICTATION DATE: 02/27/202100 BUILDING INSPECTION ENGINEER: NELLY 02/27/202100 RPT#: [id number] DC DATE: STATUS: ADM IN [facility] [address] [place] [address] END OF REPORT
[2020-02-27 21:18] LABS: HEMATOCRIT 27.1 % (36.0-48.0); HEMOGLOBIN 8.6 g/dL (12-16)
--- NOTE | 2020-02-27 21:26 | MORECARE ---
CASE MANAGEMENT DISCHARGE SUMMARY PATIENT: NAHEED CHRISTIANSON UNIT: [id number] ADM DATE: 02/23/20 AGE: 74 : 45 SEX: F ROOM/BED: D.2308 AUTHOR: SUSAN,DOC PHYSICIAN: REFERRING PHYSICIAN: AMERICA BOJORQUEZ MD DATE OF SERVICE: 02/27/20 Discharge Plan Patient Name: NAHEED CHRISTIANSON Facility: [facility]:[place] : 1945 Planned Disposition: Home with Home Health Anticipated Discharge Date: Discharge Date: Expected LOS: Initial Reviewer: [email or web address] Initial Review Date: 02/23/2020 Generated: 02/27/20 10:26 pm Comments DCP- Discharge Planning Updated by [email or web address]: Pam Wilson on 02/27/20 8:[address] Patient Name: NAHEED CHRISTIANSON Admission Status: ER Accout number: [id number] Admission Date: 02-23-2020 : 1945 Admission Diagnosis:ULCER OF ESOPHAGUS WITH BLEEDING Attending: AMERICA BOJORQUEZ Current LOS: 4 Anticipated DC Date: Planned Disposition: Home with Home Health Primary Insurance: MEDICARE A & B Discharge Planning Comments: CM met with patient to complete initial dc planning assessment. CM educated patient on the CM role and verbal consent given by patient to complete assessment. Patient lives at home alone. Patient is independent. At discharge patient plans to return home and feels this is a safe discharge. CM discussed availability of home health, rehab services, and medical equipment. Patient is a readmission and she has agreed to home health upon discharge. [facility] signed for [address] Patient will have family to transport home. Patient denied known discharge needs at this time. CM will continue to follow and will assist as needed with dc plans/needs. Drag Out Worker: Pam Wilson DCPIA - Discharge Planning Initial Assessment Updated by [email or web address]: Pam Wilson on 02/27/20 8:59 pm * Is the patient Alert and Oriented? Yes * How many steps to enter\exit or inside your home? * PCP NED MAURER APN * Pharm[facility] * Preadmission Environment Home Alone * ADLs Independent * Equipment None * List name and contact numbers for known caregivers / representatives who currently or will assist patient after discharge: LORI MARTIN - [place] - [phone] * Verbal permission to speak to the caregivers and representatives has been obtained from the patient. Yes * Community resources currently utilized None * Additional services required to return to the preadmission environment? No * Can the patient safely return to the preadmission environment? Yes * Has this patient been hospitalized within the prior 30 days at any hospital? Yes Last DP export: 02/27/20 8:01 pm Patient Name: NAHEED CHRISTIANSON Page [phone] at 2126 All edits/amendments must be made on the electronic document DICTATION DATE: 02/27/202125 PRECISION LENS GRINDER APPRENTICE: NELLY 02/27/202125 RPT#: [id number] DC DATE: STATUS: ADM IN [facility] [address] [place] [address] END OF REPORT
--- NOTE | 2020-02-28 | NUR ---
PT POSITIONED FOR COMFORT WILL CONTINUE TO MONITOR.
[2020-02-28 03:00] VITALS: BP 153/108
[2020-02-28 03:43] LABS: BASOPHILS 0.3 % (0-2); HEMATOCRIT 30.8 % (36.0-48.0); HEMOGLOBIN 10.2 g/dL (12-16); IMMATURE GRANULOCYTES 0.3 % (0-5); LYMPHOCYTES 14.8 % (15-50); MCH 29.5 pg (26.0-34.0); MCHC 33.1 g/dL (31.0-37.0); MEAN PLATELET VOLUME 8.1 fL (7.4-10.4); MONOCYTES 8.9 % (2-11); NEUTROPHILS 73.7 % (40-80); PLATELET COUNT 397 10x3/uL (130-400); RBC 3.46 10x6/uL (4.00-5.40); RDW 13.2 % (11.5-14.5); WBC 6.9 10x3/uL (4.8-10.8)
[2020-02-28 03:58] LABS: ALBUMIN 2.2 g/dL (3.4-5.0); ANION GAP 8.3 mmol/L (8-16); BILIRUBIN - TOTAL 0.34 mg/dL (0.2-1.3); CARBON DIOXIDE 28.4 mmol/L (21.0-32.0); CREATININE - SERUM 0.9 mg/dL (0.6-1.3); MAGNESIUM - SERUM 1.7 mg/dL (1.8-2.4); POTASSIUM - SERUM 3.7 mmol/L (3.5-5.1); PROTEIN - SERUM 5.3 g/dL (6.4-8.2)
--- NOTE | 2020-02-28 04:00 | NUR ---
PT HAVING THE FEELING OF NAUSEA. POSITIONED THE PT FOR COMFORT.
[2020-02-28 07:00] VITALS: BP 176/108
--- NOTE | 2020-02-28 07:00 | NUR ---
RECEIVED REPORT. ALARMS ON WITH PARAMETERS SET. SEE IV FLOW SHEET FOR MEDS INFUSING. ASSESSMENT COMPLETED. BED IN LOW POSITION. CALL LIGHT IN REACH
--- NOTE | 2020-02-28 09:00 | NUR ---
NO CHANGE IN PREVIOUS ASSESSMENT. CALL LIGHT IN REACH. DAUGHTER HERE FOR VISIT. NEW ORDERS RECEIVED AND FOLLOWED. BED IN LOW POSITION. CALL LIGHT IN REACH. WILL CONTINUE TO DRAPERY SEAMSTRESS PATIENT TO CONSUME GOLYTELY. DAUGHTER PLACED COLORED POPCICLE IN GOLYTELY CUP WHILE NURSING STAFF NOT PRESENT. SAID DID THIS TO HELP MOM TOLERATE GOLYTELY.
[2020-02-28 11:00] VITALS: BP 164/105
--- NOTE | 2020-02-28 11:00 | NUR ---
DAUGHTER REMAINS AFTER VISITING HOURS. INSTRUCTED BY NURSING STAFF OF VISITING HOURS. WILL CONTINUE TO MONITOR FOR ANY CHANGES. BED IN LOW POSITION. CALL LIGHT IN REACH.
--- NOTE | 2020-02-28 11:13 | NUR ---
Nutrition follow-up: Pt drinking golytly at this time; with some nausea colonoscopy today ProcalAmine PPN @ 30 ml/hr Labs reviewed RDN following.
[2020-02-28 12:00] VITALS: BP 103/74
--- NOTE | 2020-02-28 12:54 | NUR ---
ORDERS TO TRANSFER TO MED SURG. REPORT GIVEN TO MARLON ROBLES. VERBALIZED UNDERSTANDING.
--- NOTE | 2020-02-28 13:00 | NUR ---
PT RECEIVED FROM ICU VIA BED TO ROOM 2205. PT AWAKE ALERT AND ORIENTED TO PERSON PLACE TIME AND SITUATION. DENIES PAIN AT THIS TIME. IV TO RIGHT FOREARM WITH PROCALAMINE @ 30ML/HR, NS @ 5ML/HR, ZOFRAN 4.7ML/HR ALL INFUSING VIA PUMP. SITE WITHOUT REDNESS OR EDEMA. ORIENTED TO ROOM AND CALL LIGHT. DAUGHTER AT BEDSIDE. CL WITHIN REACH. ENCOURAGED TO CALL WITH NEEDS. CONTINUE POC
--- NOTE | 2020-02-28 14:26 | NUR ---
ADMINISTERED PRN TYLENOL AND ZOFRAN. TOLERATED WELL. FAMILY IS AT BEDSIDE. DENIES ANY NEEDS.
[2020-02-28 18:15] VITALS: BP 171/105
--- NOTE | 2020-02-28 19:30 | NUR ---
PATIENT IS COMPLAINING OF PAIN. IV BOLUS OF DILUADID WAS GIVEN. HE IS ALERT AND ORIENTATED, WITH NO COMPLAINTS NOW.
[2020-02-28 20:00] VITALS: BP 151/98
--- NOTE | 2020-02-28 20:05 | NUR ---
PATIENT IS RESTING COMFORTABLY IN BED. SHE IS ALERT AND ORIENTATED. HER DAUGHTER IS LEAVING FOR THE NIGHT. SHE HAS NO COMPLAINTS AT THIS TIME.
[2020-02-29] VITALS: BP 135/82
[2020-02-29 04:00] VITALS: BP 133/58
--- NOTE | 2020-02-29 04:48 | NUR ---
PATIENT IS SLEEPING COMFORTABLY IN BED. SHE WAS INCONTINENT AND WET BED LAST NIGHT. SHE IS ON ROOM AIR. SHE TOOK HER BED TIME MEDICATIONS. IV PROCALAMINE WAS INCREASED TO 75/HR AFTER IRON WAS DONE. SHE HAS NO COMPLAINTS AT THIS TIME.
[2020-02-29 04:55] LABS: BASOPHILS 0.3 % (0-2); EOSINOPHILS 3.4 % (0-7); HEMATOCRIT 30.3 % (36.0-48.0); IMMATURE GRANULOCYTES 0.3 % (0-5); LYMPHOCYTES 13.4 % (15-50); MCH 29.3 pg (26.0-34.0); MCV 88.9 fL (80.0-100.0); MEAN PLATELET VOLUME 8.1 fL (7.4-10.4); MONOCYTES 10.1 % (2-11); NEUTROPHILS 72.5 % (40-80); PLATELET COUNT 428 10x3/uL (130-400); RBC 3.41 10x6/uL (4.00-5.40); RDW 13.3 % (11.5-14.5); WBC 5.8 10x3/uL (4.8-10.8)
[2020-02-29 05:14] LABS: ALBUMIN 2.1 g/dL (3.4-5.0); ANION GAP 8.2 mmol/L (8-16); BILIRUBIN - TOTAL 0.19 mg/dL (0.2-1.3); CALCIUM 9.2 mg/dL (8.5-10.1); CARBON DIOXIDE 27.1 mmol/L (21.0-32.0); CREATININE - SERUM 0.9 mg/dL (0.6-1.3); POTASSIUM - SERUM 3.3 mmol/L (3.5-5.1); PROTEIN - SERUM 5.2 g/dL (6.4-8.2)
[2020-02-29 08:00] VITALS: BP 156/101
--- NOTE | 2020-02-29 08:51 | NUR ---
SHE IS ALERT, WALKING TO THE BATHROOM. DENIES ANY NAUSEA OR VOMITING. THE CALL LIGHT IS WITHIN REACH. HER DAUGHTER IS AT THE BEDSIDE.
[2020-02-29 12:00] VITALS: BP 120/76
--- NOTE | 2020-02-29 14:34 | NUR ---
Rehab Note- Acute Inpatient prescreen order received. The patient is noted to be ambulating with PT 250ft with CGA/SBA and is currently too functional for inpatient acute rehab. Spoke with MORA Lopez. Thank you for this referral! Awa Pearson RN Clinical Liaison, [facility] Rehab
[2020-02-29 16:00] VITALS: BP 129/82
[2020-02-29 20:00] VITALS: BP 133/83
[2020-03-01] VITALS: BP 138/87
[2020-03-01 04:00] VITALS: BP 147/91
[2020-03-01 06:43] LABS: BASOPHILS 0.4 % (0-2); EOSINOPHILS 5.6 % (0-7); HEMATOCRIT 30.9 % (36.0-48.0); IMMATURE GRANULOCYTES 0.7 % (0-5); LYMPHOCYTES 15.1 % (15-50); MCH 28.8 pg (26.0-34.0); MCHC 32.4 g/dL (31.0-37.0); MEAN PLATELET VOLUME 8.3 fL (7.4-10.4); MONOCYTES 10.3 % (2-11); NEUTROPHILS 67.9 % (40-80); PLATELET COUNT 435 10x3/uL (130-400); RBC 3.47 10x6/uL (4.00-5.40); RDW 13.4 % (11.5-14.5)
[2020-03-01 07:03] LABS: ALBUMIN 2.1 g/dL (3.4-5.0); ALKALINE PHOSPHATASE 97 U/L (30-120); ALT (SGPT) 13 U/L (10-68); BILIRUBIN - TOTAL 0.14 mg/dL (0.2-1.3); CALC OSMOLALITY 269 mosm/kg (275-300); CALCIUM 9.6 mg/dL (8.5-10.1); CARBON DIOXIDE 27.1 mmol/L (21.0-32.0); CHLORIDE - SERUM 102 mmol/L (98-107); CREATININE - SERUM 0.7 mg/dL (0.6-1.3); GLUCOSE 86 mg/dL (74-106); POTASSIUM - SERUM 3.4 mmol/L (3.5-5.1); PROTEIN - SERUM 5.2 g/dL (6.4-8.2); SODIUM 136 mmol/L (136-145); UREA NITROGEN 10 mg/dL (7-18); eGFR NON AFRICAN AMERICAN 87 mL/min (90-120)
--- NOTE | 2020-03-01 12:06 | MORECARE ---
CASE MANAGEMENT DISCHARGE SUMMARY PATIENT: NAHEED CHRISTIANSON UNIT: [id number] ADM DATE: 02/23/20 AGE: 74 : 45 SEX: F ROOM/BED: D.2206 AUTHOR: DAVID DAVIS PHYSICIAN: REFERRING PHYSICIAN: AMERICA BOJORQUEZ MD DATE OF SERVICE: 03/01/20 Discharge Plan Patient Name: NAHEED CHRISTIANSON Facility: [facility]:[place] : 1945 Planned Disposition: Home with Home Health Anticipated Discharge Date: Discharge Date: Expected LOS: Initial Reviewer: [email or web address] Initial Review Date: 02/23/2020 Generated: 03/01/20 1:05 pm Comments DCP- Discharge Planning Updated by [email or web address]: Dulce Herzog on 03/01/20 11:[address] SPOKE WITH PATIENT AND DAUGHTER AT LENGTH, THEY WOULD LIKE TO GO TO [facility] SIGNED AND REFERRAL SENT . [facility] ALSO SIGNED AND EXPLAINED. CM TO FOLLOW AND ASSIST NEEDED DCP- Discharge Planning Updated by [email or web address]: Pam Wilson on 02/27/20 8:[address] Patient Name: NAHEED CHRISTIANSON Admission Status: ER Accout number: [id number] Admission Date: 02-23-2020 : 1945 Admission Diagnosis:ULCER OF ESOPHAGUS WITH BLEEDING Attending: AMERICA BOJORQUEZ Current LOS: 4 Anticipated DC Date: Planned Disposition: Home with Home Health Primary Insurance: MEDICARE A & B Discharge Planning Comments: CM met with patient to complete initial dc planning assessment. CM educated patient on the CM role and verbal consent given by patient to complete assessment. Patient lives at home alone. Patient is independent. At discharge patient plans to return home and feels this is a safe discharge. CM discussed availability of home health, rehab services, and medical equipment. Patient is a readmission and she has agreed to home health upon discharge. [facility] signed for [employer] [facility] [place] Patient will have family to transport home. Patient denied known discharge needs at this time. CM will continue to follow and will assist as needed with dc plans/needs. Rural Route Mail Carrier: Pam Wilson DCPIA - Discharge Planning Initial Assessment Updated by [email or web address]: Pam Wilson on 02/27/20 8:59 pm * Is the patient Alert and Oriented? Yes * How many steps to enter\exit or inside your home? * PCP [facility] * Pharmacy [facility] * Preadmission Environment Home Alone * ADLs Independent * Equipment None * List name and contact numbers for known caregivers / representatives who currently or will assist patient after discharge: LORI ESTEBAN - [phone] * Verbal permission to speak to the caregivers and representatives has been obtained from the patient. Yes * Community resources currently utilized None * Additional services required to return to the preadmission environment? No * Can the patient safely return to the preadmission environment? Yes * Has this patient been hospitalized within the prior 30 days at any hospital? Yes External Providers External Provider: [facility] Next Contact Date: Service Request Date: Service Type: Resolution: Reviewer: Comments: Coverage Notice Reviewer: [email or web address] Barbara Herzog Notice Issued Date-Time: 03/01/2020 12:00 Notice Type: IM Discharge Notice Notice Delivered To: Patient Relationship to Patient: Carpentry Instructor Name: Delivery Method: HAND - Hand Delivered Ella Days: Prior Verbal Notification: Recipient Understood Notice: Yes Recipient Signature: Yes Med Rec Note Co-signed by Attending: Coverage Notice Comment: IMM SERVED AND SIGNED Reviewer: [id number] Herzog Notice Issued Date-Time: 03/01/2020 12:00 Notice Type: Patient Choice Letter Notice Delivered To: Patient Relationship to Patient: Carpentry Instructor Name: Delivery Method: HAND - Hand Delivered Ella Days: Prior Verbal Notification: Recipient Understood Notice: Yes Recipient Signature: Yes Med Rec Note Co-signed by Attending: Coverage Notice Comment: [facility] [place] Last DP export: 02/27/20 8:26 pm Patient Name: NAHEED CHRISTIANSON Page [id number] at 1206 All edits/amendments must be made on the electronic document DICTATION DATE: 03/01/201204 BONE DENSITY TECHNICIAN: NELLY 03/01/201204 RPT#: [id number] DC DATE: STATUS: ADM IN [facility] [address] [place] [address] END OF REPORT
[2020-03-01 14:57] VITALS: BP 111/72
[2020-03-01] MEDS ORDERED: LOPRESSOR25 MG PO (15:17)
[2020-03-01] MEDS ORDERED: Requip PO (15:18)
[2020-03-01] MEDS ORDERED: NORVASC10 MG PO (15:18)
[2020-03-01] MEDS ORDERED: HYDROCODON-ACE1 EAC7 PO (15:41)
--- NOTE | 2020-03-01 16:20 | NUR ---
IV DISCONTINUED AND VERBALIZED UNDERSTANDING OF DISCOARGE INSTRUCTIONS. REPROT CALLED TO FLORECITA TELLEZ AT [place]. [facility] AT TIME OF DEPARTURE.
--- NOTE | 2020-03-02 09:41 | MORECARE ---
CASE MANAGEMENT DISCHARGE SUMMARY PATIENT: NAHEED CHRISTIANSON UNIT: [id number] ADM DATE: 02/23/20 AGE: 74 : 45 SEX: F ROOM/BED: D.2206 AUTHOR: SUSAN,DOC PHYSICIAN: REFERRING PHYSICIAN: AMERICA BOJORQUEZ MD DATE OF SERVICE: 03/02/20 Discharge Plan Patient Name: NAHEED CHRISTIANSON Facility: [facility]:[place] : 1945 Planned Disposition: Home with Home Health Anticipated Discharge Date: Discharge Date: 03/01/2020 Expected LOS: Initial Reviewer: [email or web address] Initial Review Date: 02/23/2020 Generated: 03/02/20 10:41 am DCP- Discharge Planning Updated by [email or web address]: Dulce Herzog on 03/01/20 11:[address] SPOKE WITH PATIENT AND DAUGHTER AT LENGTH, THEY WOULD LIKE TO GO TO [facility] SIGNED AND REFERRAL SENT . [facility] ALSO SIGNED AND EXPLAINED. CM TO FOLLOW AND ASSIST NEEDED DCP- Discharge Planning Updated by [email or web address]: Pam Wilson on 02/27/20 8:[address] Patient Name: NAHEED CHRISTIANSON Admission Status: ER Accout number: [id number] Admission Date: 02-23-2020 : 1945 Admission Diagnosis:ULCER OF ESOPHAGUS WITH BLEEDING Attending: AMERICA BOJORQUEZ Current LOS: 4 Anticipated DC Date: Planned Disposition: Home with Home Health Primary Insurance: MEDICARE A & B Discharge Planning Comments: CM met with patient to complete initial dc planning assessment. CM educated patient on the CM role and verbal consent given by patient to complete assessment. Patient lives at home alone. Patient is independent. At discharge patient plans to return home and feels this is a safe discharge. CM discussed availability of home health, rehab services, and medical equipment. Patient is a readmission and she has agreed to home health upon discharge. [facility] signed for [facility] [place] Patient will have family to transport home. Patient denied known discharge needs at this time. CM will continue to follow and will assist as needed with dc plans/needs. Information Technology Specialist: Pam Wilson DCPIA - Discharge Planning Initial Assessment Updated by [email or web address]: Pam Wilson on 02/27/20 8:59 pm * Is the patient Alert and Oriented? Yes * How many steps to enter\exit or inside your home? * PCP [facility] * Pharmacy [facility] * Preadmission Environment Home Alone * ADLs Independent * Equipment None * List name and contact numbers for known caregivers / representatives who currently or will assist patient after discharge: LORI ESTEBAN - [phone] * Verbal permission to speak to the caregivers and representatives has been obtained from the patient. Yes * Community resources currently utilized None * Additional services required to return to the preadmission environment? No * Can the patient safely return to the preadmission environment? Yes * Has this patient been hospitalized within the prior 30 days at any hospital? Yes Coverage Notice Reviewer: [id number] Herzog Notice Issued Date-Time: 03/01/2020 12:00 Notice Type: IM Discharge Notice Notice Delivered To: Patient Relationship to Patient: Autocad Designer Name: Delivery Method: HAND - Hand Delivered Ella Days: Prior Verbal Notification: Recipient Understood Notice: Yes Recipient Signature: Yes Med Rec Note Co-signed by Attending: Coverage Notice Comment: IMM SERVED AND SIGNED Reviewer: [id number] Herzog Notice Issued Date-Time: 03/01/2020 12:00 Notice Type: Patient Choice Letter Notice Delivered To: Patient Relationship to Patient: Autocad Designer Name: Delivery Method: HAND - Hand Delivered Ella Days: Prior Verbal Notification: Recipient Understood Notice: Yes Recipient Signature: Yes Med Rec Note Co-signed by Attending: Coverage Notice Comment: [facility] Last DP export: 03/01/20 11:06 a Patient Name: NAHEED CHRISTIANSON Page [phone] at 0941 All edits/amendments must be made on the electronic document DICTATION DATE: 03/02/20940 TOWEL ROLLING MACHINE OPERATOR: NELLY 03/02/20940 RPT#: [id number] DC DATE:03/01/20 STATUS: DIS IN [facility] [address] [place] [address] END OF REPORT
== END 2020-03-01 16:20 | DRG 357 ==
LOC: D.ER 17:39 → D.ICU 18:41 → D.MS 02-28 12:56
PROVIDERS: Emergency Medicine; Family Medicine; Family Medicine Adult Medicine; Internal Medicine Hematology & Oncology; Surgery; ADMIT Family Medicine; ATTEND Family Medicine
PROC: 0DJ60ZZ Inspection of Stomach, Open Approach (ICD-10-PCS; principal; 2020-02-24 12:00)
DX: K22.11 Ulcer of esophagus with bleeding (principal); D62 Acute posthemorrhagic anemia; E87.1 Hypo-osmolality and hyponatremia; K56.1 Intussusception; K52.9 Noninfective gastroenteritis and colitis, unspecified; K21.9 Gastro-esophageal reflux disease without esophagitis; E87.6 Hypokalemia; R91.8 Other nonspecific abnormal finding of lung field; K76.9 Liver disease, unspecified; E78.5 Hyperlipidemia, unspecified; F32.9 Major depressive disorder, single episode, unspecified; I10 Essential (primary) hypertension

== ENCOUNTER 2020-05-06 06:39 | Day surgery (SDC) | payer MEDICARE, OTHER ==
[~2020-05-06] VITALS: Ht 167.6 cm; Wt 59.1 kg
[~2020-05-06 06:39] MED LIST changes: +HYDROCODON-ACE1 EAC7 PO; +NORVASC10 MG PO; +Requip PO
[2020-05-06 07:10] LABS: BASOPHILS 0.2 % (0-2); EOSINOPHILS 0.9 % (0-7); HEMATOCRIT 32.9 % (36.0-48.0); HEMOGLOBIN 10.5 g/dL (12-16); IMMATURE GRANULOCYTES 0.2 % (0-5); LYMPHOCYTES 19.9 % (15-50); MCH 27.3 pg (26.0-34.0); MCHC 31.9 g/dL (31.0-37.0); MCV 85.5 fL (80.0-100.0); MEAN PLATELET VOLUME 7.9 fL (7.4-10.4); MONOCYTES 13.8 % (2-11); PLATELET COUNT 469 10x3/uL (130-400); RBC 3.85 10x6/uL (4.00-5.40); WBC 9.8 10x3/uL (4.8-10.8)
[2020-05-06 07:27] LABS: ANION GAP 9.9 mmol/L (8-16); CALCIUM 10.1 mg/dL (8.5-10.1); CARBON DIOXIDE 29.1 mmol/L (21.0-32.0); CREATININE - SERUM 1.3 mg/dL (0.6-1.3)
[2020-05-06 08:13] LABS: INR 1.04 (0.85-1.17); PROTIME 13.5 SECONDS (11.6-15.0)
[2020-05-06 08:14] LABS: APTT 33.2 SECONDS (22.8-39.4)
[2020-05-06 08:17] VITALS: BP 111/76; Ht 167.6 cm; Wt 59.1 kg
--- NOTE | 2020-05-06 09:36 | NUR ---
0930 IV DC'D. CATHETER TIP INTACT. NO BLEEDING AT SITE. BANDAID APPLIED. PT AND HER DAUGHTER VOICE UNDERSTANDING OF DISCHARGE INSTRUCTIONS THAT WAS REVIEWED WITH THEM.
--- NOTE | 2020-05-07 08:32 | OP ---
PATIENT NAME: NAHEED CHRISTIANSON MEDICAL RECORD: [id number] :[birth year] LOCATION:[facility] ADMISSION DATE: SURGEON: PATI JAVIER DO DATE OF OPERATION: 05/06/2020 PROCEDURE: EGD with biopsies. INDICATIONS FOR PROCEDURE: GERD and abnormal imaging of the distal esophagus. SCOPE: Olympus video gastroscope. MEDICATIONS: Propofol 160 mg IV per anesthesia. ESTIMATED BLOOD LOSS: Minimal. COMPLICATIONS: None. FINDINGS AND DESCRIPTION OF PROCEDURE: Informed consent was given. The patient was made comfortable with the above medication. After reaching an adequate level of sedation by slow IV push, the patient was placed on her left side. The endoscope was advanced under direct visualization through the mouth to the second portion of the duodenum with ease. In the esophagus, there was evidence of grade D erosive esophagitis extending up to the midesophagus. Appearances did appear improved from her previous endoscopy in January, but there is obvious continued severe reflux. At the GE junction, there was evidence of possible Pickens's mucosa versus carditis. Multiple cold forceps biopsies were taken from the squamocolumnar junction to submit for histopathology. In the distal esophagus, there were also some biopsies taken in the squamous mucosa regarding the previous report of thickening of the distal esophagus. There were no obvious masses, but there were multiple areas of raised tissue, which is likely reactive and inflammatory in nature. Again, multiple biopsies were taken to submit for pathology. The endoscope was advanced beyond the GE junction into the stomach and retroflexed to view the cardia where there was evidence of a small sliding hiatal hernia. Throughout the fundus and proximal body of the stomach, there was congestion and erythema consistent with gastritis. Cold forceps biopsies were taken from the fundus. The distal body of the stomach and antrum appeared normal. Cold forceps biopsies were taken from the antrum to submit for histopathology and to rule out the presence of H. pylori. The endoscope was advanced beyond the pylorus into the duodenal bulb where there was some erythema and granularity and 2 nodules, which were unchanged from previous examination. Cold forceps biopsies were taken from both of these nodules to submit for histopathology and to confirm that these are still reactive in nature. The endoscope was advanced beyond the bulb into the second portion of the duodenum where there was still some erythema and granularity. Cold forceps biopsies were taken to submit for histopathology. The endoscope was withdrawn from the patient. The patient tolerated the procedure well and there were no complications. IMPRESSIONS: 1. LA class D reflux reflux-induced esophagitis, which is improved in appearance, but still significant for erosive esophagitis. 2. Inflammatory changes in the GE junction, which could be Pickens's mucosa versus carditis versus possible malignancy. Appearances do favor reactive and inflammatory in nature. Multiple biopsies were taken. 3. Chronic gastritis changes in the fundus of the stomach consisting of OPERATIVE REPORT [id number] NAHEED CHRISTIANSON erythema and congestion. 4. Duodenal nodules in the bulb of the duodenum, status post biopsies taken. 5. Duodenitis. PLAN AND RECOMMENDATIONS: 1. Discharge home when recovery parameters are met. 2. Follow up biopsy specimen results. 3. GERD diet and reflux precautions. 4. Continue current medications including Protonix 40 mg daily and Carafate suspension 1 gram q.i.d. After 30 days, the patient can discontinue the Carafate, but I would recommend indefinite use of Protonix or an equivalent PPI based on the severe changes seen on her past two endoscopies. 5. We will await pathology results, but I would recommend a repeat EGD in 1 year to assure that there are no further changes in sites of inflammation and that this is not malignant process evolving. 6. Follow up in GI clinic in 6-8 weeks. TRANSINT:[id number] Voice Confirmation ID: [id number] DOCUMENT ID: [id number] PATI JAVIER DO at 0832 CC: [id number] DICTATION DATE: 05/06/20 0857 PROFESSOR OF MEDICINE: 05/06/20 1505 [facility] 05/06/[address] [address]
== END 2020-05-06 09:38 | disposition home or self-care (01) ==
LOC: D.OPS 06:39
PROVIDERS: Anesthesiology; ATTEND Internal Medicine Gastroenterology
DX: K21.9 Gastro-esophageal reflux disease without esophagitis (principal); K29.50 Unspecified chronic gastritis without bleeding